=== PATIENT | male | born 1985 | race Caucasian/White ===

== ENCOUNTER 2020-02-23 11:34 | Inpatient (IN) | payer OTHER ==
[~2020-02-23] VITALS: Ht 198.1 cm; Wt 202.6 kg
--- NOTE | 2020-02-23 11:45 | NUR ---
BOWLING BALL MARKER: [id number]
--- NOTE | 2020-02-23 11:53 | NUR ---
NEONATAL SPECIALIST: [id number]
[2020-02-23] MEDS ORDERED: OXYcodone/APAP 5/325MG TABLET PO ONE (13:30)
[2020-02-23] MEDS ORDERED: OXYcodone/APAP 5/325MG TABLET ONE (13:31)
[2020-02-23] MEDS ORDERED: ONDANSETRON ODT 4 MG PO PRN (14:30)
[2020-02-23] MEDS ORDERED: ONDANSETRON 2MG/ML, 2ML IVPush PRN (14:30)
[2020-02-23] MEDS ORDERED: OXYcodone/APAP 5/325MG TABLET PO PRN (14:30)
[2020-02-23] MEDS ORDERED: POLYETHYLENE GLYCOL 17 GM PACKET PO PRN (14:30)
[2020-02-23] MEDS ORDERED: TRAZODONE 100MG TABLET PO PRN (14:30)
[2020-02-23] MEDS ORDERED: LORazepam 2 MG/ML, 1ML IVPush PRN (14:30)
[2020-02-23] MEDS ORDERED: MELATONIN 5 MG TABLET PO PRN (14:30)
[2020-02-23] MEDS ORDERED: MORPHINE SULFATE 4 MG/ML, 1ML IVPush PRN (14:30)
[2020-02-23] MEDS ORDERED: VANCOMYCIN PER PHARMACY MC PRN (15:00)
[2020-02-23 15:42] LABS: ANION GAP 5 mmol/L (5-15); CALCIUM 9.6 mg/dL (8.5-10.1); CHLORIDE 102 mmol/L (98-107); CREATININE 0.91 mg/dL (0.7-1.3)
[2020-02-23 15:48] VITALS: BP 127/73
[2020-02-23] MEDS ORDERED: PHARMACOKINETIC MONITORING MC PRN (16:00)
[2020-02-23] MEDS: INSULIN LISPRO 100 UNITS/ML, PEN SQ-INSULIN SCH ×2 (16:00→19:56)
[2020-02-23] MEDS ORDERED: GADOTERATE 7.5 MMOL/15 ML VIAL ONE (16:43)
[2020-02-23] MEDS: PIPERACILLIN/TAZO/PMX 4.5GM 100 ML IV SCH ×2 (17:44→22:20)
[2020-02-23] MEDS: ENOXAPARIN 30 MG/0.3 ML SQ SCH (18:24)
[2020-02-23] MEDS: VANCOMYCIN 2,500 MG in SODIUM CHLORIDE 0.9% 500 ML IV SCH (18:25)
[2020-02-23 20:08] VITALS: BP 123/76
[2020-02-24] MEDS: VANCOMYCIN 2,500 MG in SODIUM CHLORIDE 0.9% 500 ML IV SCH ×3 (01:12→20:01)
[2020-02-24 01:19] VITALS: BP 125/79
[2020-02-24] MEDS: PIPERACILLIN/TAZO/PMX 4.5GM 100 ML IV SCH ×4 (04:07→21:56)
[2020-02-24] MEDS: ENOXAPARIN 30 MG/0.3 ML SQ SCH ×5 (04:07→20:52)
[2020-02-24 06:29] LABS: BASOPHILS % (AUTO) 1 % (0-1); EOSINOPHILS % (AUTO) 6 % (1-7); LYMPHOCYTES % (AUTO) 25 % (22-44); MEAN CORPUSCULAR HEMOGLOBIN 29.2 pg (27.5-34.5); MEAN CORPUSCULAR HGB CONC 33.9 g/dL (33.2-36.2); MEAN PLATELET VOLUME 7.8 fL (7.4-10.4); MONOCYTES % (AUTO) 11 % (2-9); NEUTROPHILS % (AUTO) 57 % (42-75); PLATELET COUNT 311 x10^3/uL (130-400); RED BLOOD COUNT 4.51 x10^6/uL (4.38-5.82); RED CELL DISTRIBUTION WIDTH 12.8 % (9.4-14.8)
[2020-02-24 06:31] LABS: MD NO
[2020-02-24 06:41] LABS: ALBUMIN 2.9 g/dL (3.4-5.0); ANION GAP 8 mmol/L (5-15); CALCIUM 9.2 mg/dL (8.5-10.1); CHLORIDE 106 mmol/L (98-107)
[2020-02-24 06:44] LABS: ALANINE AMINOTRANSFERASE 32 U/L (12-78); ALKALINE PHOSPHATASE 104 U/L (45-117); BILIRUBIN,TOTAL 0.9 mg/dL (0.2-1.0); CREATININE 0.85 mg/dL (0.7-1.3); TOTAL PROTEIN 7.3 g/dL (6.4-8.2)
[2020-02-24 07:00] VITALS: BP 125/75
[2020-02-24] MEDS: INSULIN LISPRO 100 UNITS/ML, PEN SQ-INSULIN SCH ×4 (07:00→20:02)
[2020-02-24 14:03] VITALS: BP 126/86
[2020-02-24] MEDS ORDERED: MIDAZOLAM 1 MG/ML, 2ML ONE (17:41)
[2020-02-24] MEDS ORDERED: BUPIVACAINE/PF 0.5% ONE (17:42)
[2020-02-24] MEDS ORDERED: LIDOCAINE/PF 1%, 30ML ONE (17:42)
[2020-02-24] MEDS ORDERED: ROCURONIUM 10 MG/ML,10ML ONE (17:53)
[2020-02-24] MEDS ORDERED: CEFAZOLIN 1,000 MG ONE (17:53)
[2020-02-24] MEDS ORDERED: SUGAMMADEX 200 MG/2 ML IVPush ONE (17:53)
[2020-02-24] MEDS ORDERED: PROPOFOL 10 MG/ML, 20ML ONE (17:53)
[2020-02-24] MEDS ORDERED: ONDANSETRON 2MG/ML, 2ML ONE (17:53)
[2020-02-24] MEDS ORDERED: FENTANYL PF 100 MCG/2ML ONE (18:11)
[2020-02-24] MEDS ORDERED: VANCOMYCIN 1,000 MG ONE (18:22)
[2020-02-24] MEDS ORDERED: hydrALAzine 20 MG/ML, 1ML IV PRN (18:30)
[2020-02-24] MEDS ORDERED: PROMETHAZINE 25 MG/ML, 1ML IV PRN (18:30)
[2020-02-24] MEDS ORDERED: HYDROmorphone 1 MG/ML, 1ML INJ IV PRN (18:30)
[2020-02-24] MEDS ORDERED: DIAZEPAM 5 MG/ML, 2ML IV PRN ×2 (18:30)
[2020-02-24] MEDS ORDERED: ALBUTEROL SULFATE 2.5 MG/3 ML NPPB PRN (18:30)
[2020-02-24] MEDS ORDERED: ONDANSETRON 2MG/ML, 2ML IVPush PRN (18:30)
[2020-02-24] MEDS ORDERED: OXYcodone 5 MG/5 ML ORAL.SOL UDC PO PRN (18:30)
[2020-02-24] MEDS ORDERED: METOCLOPRAMIDE 5 MG/ML, 2ML IV PRN (18:30)
[2020-02-24] MEDS ORDERED: KETOROLAC 30 MG/1 ML IV PRN (18:30)
[2020-02-24] MEDS ORDERED: LABETALOL 5MG/ML, 20ML IV PRN (18:30)
[2020-02-24] MEDS ORDERED: MEPERIDINE/PF 25MG/0.5ML IVPush PRN (18:30)
[2020-02-24] MEDS ORDERED: FENTANYL PF 100 MCG/2ML IV PRN (18:30)
[2020-02-24] MEDS ORDERED: HYDROmorphone 1 MG/ML, 1ML INJ ONE (18:51)
[2020-02-24] MEDS ORDERED: OXYcodone 5 MG/5 ML ORAL.SOL UDC ONE (18:51)
[2020-02-24 19:48] VITALS: BP 127/79
[2020-02-25 01:05] VITALS: BP 119/80
[2020-02-25] MEDS: PIPERACILLIN/TAZO/PMX 4.5GM 100 ML IV SCH ×4 (03:31→21:07)
[2020-02-25] MEDS: VANCOMYCIN 2,500 MG in SODIUM CHLORIDE 0.9% 500 ML IV SCH (04:14)
[2020-02-25] MEDS: INSULIN LISPRO 100 UNITS/ML, PEN SQ-INSULIN SCH ×4 (07:00→20:14)
[2020-02-25 08:09] VITALS: BP 130/84
[2020-02-25 08:52] LABS: CREATININE 0.91 mg/dL (0.7-1.3); VANCOMYCIN,TROUGH 33.5 mcg/mL (5.0-10.0)
[2020-02-25 12:41] VITALS: BP 138/84
[2020-02-25] MEDS ORDERED: VANCOMYCIN 2,300 MG in SODIUM CHLORIDE 0.9% 500 ML IV SCH (14:30)
[2020-02-25 19:27] VITALS: BP 150/90
[2020-02-26 01:03] VITALS: BP 127/76
[2020-02-26] MEDS: PIPERACILLIN/TAZO/PMX 4.5GM 100 ML IV SCH ×4 (04:08→21:53)
[2020-02-26] MEDS: ENOXAPARIN 30 MG/0.3 ML SQ SCH ×2 (04:08→16:29)
[2020-02-26] MEDS: INSULIN LISPRO 100 UNITS/ML, PEN SQ-INSULIN SCH ×2 (07:00→11:00)
[2020-02-26 08:19] VITALS: BP 134/82
[2020-02-26 13:05] VITALS: BP 124/78
[2020-02-26 19:44] VITALS: BP 141/77
[2020-02-27 00:58] VITALS: BP 129/83
[2020-02-27] MEDS: PIPERACILLIN/TAZO/PMX 4.5GM 100 ML IV SCH ×4 (04:07→22:09)
[2020-02-27] MEDS: ENOXAPARIN 30 MG/0.3 ML SQ SCH ×2 (04:07→16:47)
[2020-02-27 07:57] VITALS: BP 130/81
[2020-02-27 14:36] VITALS: BP 146/92
[2020-02-27 19:56] VITALS: BP 126/85
[2020-02-28 01:01] VITALS: BP 144/92
[2020-02-28] MEDS: PIPERACILLIN/TAZO/PMX 4.5GM 100 ML IV SCH ×4 (04:15→22:22)
[2020-02-28] MEDS: ENOXAPARIN 30 MG/0.3 ML SQ SCH ×2 (04:15→16:21)
[2020-02-28 07:02] VITALS: BP 121/75
[2020-02-28 12:25] VITALS: BP 116/77
[2020-02-28 20:54] VITALS: BP 131/76
[2020-02-29 00:32] VITALS: BP 107/69
[2020-02-29] MEDS: PIPERACILLIN/TAZO/PMX 4.5GM 100 ML IV SCH ×2 (04:46→10:22)
[2020-02-29] MEDS: ENOXAPARIN 30 MG/0.3 ML SQ SCH ×2 (04:46→16:12)
[2020-02-29 06:34] LABS: ANION GAP 6 mmol/L (5-15); CHLORIDE 107 mmol/L (98-107)
[2020-02-29 06:44] LABS: ALANINE AMINOTRANSFERASE 34 U/L (12-78); ALKALINE PHOSPHATASE 84 U/L (45-117); BILIRUBIN,TOTAL 0.5 mg/dL (0.2-1.0); CREATININE 0.96 mg/dL (0.7-1.3); TOTAL PROTEIN 7.3 g/dL (6.4-8.2)
[2020-02-29 06:53] LABS: HCT (SEDRATE) 39.1 % (39.2-51.8)
[2020-02-29 06:56] LABS: BASOPHILS % (AUTO) 1 % (0-1); EOSINOPHILS % (AUTO) 4 % (1-7); LYMPHOCYTES % (AUTO) 30 % (22-44); MEAN CORPUSCULAR HEMOGLOBIN 29.6 pg (27.5-34.5); MEAN CORPUSCULAR HGB CONC 34.3 g/dL (33.2-36.2); MEAN PLATELET VOLUME 7.3 fL (7.4-10.4); MONOCYTES % (AUTO) 6 % (2-9); NEUTROPHILS % (AUTO) 60 % (42-75); PLATELET COUNT 392 x10^3/uL (130-400); RED BLOOD COUNT 4.53 x10^6/uL (4.38-5.82); RED CELL DISTRIBUTION WIDTH 12.6 % (9.4-14.8)
[2020-02-29 07:01] LABS: MD NO
[2020-02-29 07:12] VITALS: BP 120/77
[2020-02-29] MEDS: metroNIDAZOLE 500 MG TABLET PO SCH ×2 (11:42→19:33)
[2020-02-29] MEDS: CEFTRIAXONE PMX 2GM/50ML 50 ML IVPB SCH (11:42)
[2020-02-29 12:41] VITALS: BP 123/68
[2020-02-29 19:41] VITALS: BP 128/77
[2020-03-01 01:33] VITALS: BP 123/79
[2020-03-01] MEDS: ENOXAPARIN 30 MG/0.3 ML SQ SCH ×2 (03:53→15:36)
[2020-03-01] MEDS: metroNIDAZOLE 500 MG TABLET PO SCH ×3 (03:53→20:21)
[2020-03-01 07:34] VITALS: BP 111/73
[2020-03-01] MEDS: CEFTRIAXONE PMX 2GM/50ML 50 ML IVPB SCH (11:46)
[2020-03-01 12:18] VITALS: BP 119/75
[2020-03-01 20:00] VITALS: BP 138/85
[2020-03-02 02:13] VITALS: BP 137/81
[2020-03-02] MEDS: metroNIDAZOLE 500 MG TABLET PO SCH ×3 (04:01→20:17)
[2020-03-02] MEDS: ENOXAPARIN 30 MG/0.3 ML SQ SCH ×2 (04:01→16:12)
[2020-03-02 09:04] VITALS: BP 110/72
[2020-03-02] MEDS: CEFTRIAXONE PMX 2GM/50ML 50 ML IVPB SCH (11:18)
[2020-03-02 15:59] VITALS: BP 114/77
[2020-03-02 20:18] VITALS: BP 137/84
[2020-03-03 00:25] VITALS: BP 112/72
[2020-03-03] MEDS: metroNIDAZOLE 500 MG TABLET PO SCH ×3 (04:13→19:35)
[2020-03-03] MEDS: ENOXAPARIN 30 MG/0.3 ML SQ SCH ×2 (04:13→16:39)
[2020-03-03 07:31] VITALS: BP 113/80
[2020-03-03] MEDS: CEFTRIAXONE PMX 2GM/50ML 50 ML IVPB SCH (11:09)
[2020-03-03 14:18] VITALS: BP 134/82
[2020-03-03 20:20] VITALS: BP 118/74
[2020-03-04 02:20] VITALS: BP 132/87
[2020-03-04] MEDS: metroNIDAZOLE 500 MG TABLET PO SCH ×3 (03:54→19:29)
[2020-03-04] MEDS: ENOXAPARIN 30 MG/0.3 ML SQ SCH ×2 (03:54→16:00)
[2020-03-04 04:41] LABS: CREATININE 1.03 mg/dL (0.7-1.3)
[2020-03-04 07:25] VITALS: BP 120/80
[2020-03-04 07:57] VITALS: BP 126/81
[2020-03-04] MEDS: CEFTRIAXONE PMX 2GM/50ML 50 ML IVPB SCH (11:31)
[2020-03-04 15:06] VITALS: BP 128/70
[2020-03-04 19:29] VITALS: BP 132/91
[2020-03-05] MEDS: ENOXAPARIN 30 MG/0.3 ML SQ SCH ×2 (03:41→15:05)
[2020-03-05] MEDS: metroNIDAZOLE 500 MG TABLET PO SCH ×3 (03:41→20:04)
[2020-03-05 03:42] VITALS: BP 131/86
[2020-03-05 07:36] VITALS: BP 118/75
[2020-03-05] MEDS ORDERED: CEFTRIAXONE PMX 2GM/50ML 50 ML IVPB SCH (10:00)
[2020-03-05 13:16] VITALS: BP 137/85
[2020-03-05 20:10] VITALS: BP 114/77
[2020-03-06 03:05] VITALS: BP 133/83
[2020-03-06] MEDS: metroNIDAZOLE 500 MG TABLET PO SCH ×3 (03:05→19:43)
[2020-03-06] MEDS: ENOXAPARIN 30 MG/0.3 ML SQ SCH ×2 (04:00→16:00)
[2020-03-06 09:06] VITALS: BP 114/76
[2020-03-06 15:35] VITALS: BP 138/84
[2020-03-06 20:26] VITALS: BP 121/80
[2020-03-07 01:12] VITALS: BP 117/79
[2020-03-07] MEDS: ENOXAPARIN 30 MG/0.3 ML SQ SCH ×2 (03:51→15:21)
[2020-03-07] MEDS: metroNIDAZOLE 500 MG TABLET PO SCH ×3 (04:04→19:23)
[2020-03-07 04:29] LABS: BASOPHILS % (AUTO) 1 % (0-1); EOSINOPHILS % (AUTO) 2 % (1-7); LYMPHOCYTES % (AUTO) 34 % (22-44); MEAN CORPUSCULAR HEMOGLOBIN 29.4 pg (27.5-34.5); MEAN PLATELET VOLUME 8.1 fL (7.4-10.4); MONOCYTES % (AUTO) 8 % (2-9); NEUTROPHILS % (AUTO) 56 % (42-75); PLATELET COUNT 332 x10^3/uL (130-400); RED BLOOD COUNT 4.89 x10^6/uL (4.38-5.82); RED CELL DISTRIBUTION WIDTH 13.4 % (9.4-14.8)
[2020-03-07 04:32] LABS: MD NO
[2020-03-07 04:37] LABS: ALANINE AMINOTRANSFERASE 56 U/L (12-78); ALBUMIN 3.4 g/dL (3.4-5.0); ANION GAP 4 mmol/L (5-15); C-REACTIVE PROTEIN, QUANT 0.79 mg/dL (0.02-0.49); CALCIUM 8.9 mg/dL (8.5-10.1); CHLORIDE 107 mmol/L (98-107)
[2020-03-07 04:40] LABS: ALKALINE PHOSPHATASE 75 U/L (45-117); BILIRUBIN,TOTAL 0.9 mg/dL (0.2-1.0); TOTAL PROTEIN 7.6 g/dL (6.4-8.2)
[2020-03-07 06:38] VITALS: BP 130/86
[2020-03-07] MEDS: CEFTRIAXONE PMX 2GM/50ML 50 ML IVPB SCH (07:09)
[2020-03-07] MEDS ORDERED: CEFTRIAXONE PMX 2GM/50ML 50 ML IVPB SCH (11:00)
[2020-03-07 14:57] VITALS: BP 123/73
[2020-03-07] MEDS ORDERED: METR500T PO ×2 (15:52)
[2020-03-07 19:11] VITALS: BP 124/82
[2020-03-08 00:33] VITALS: BP 126/85
[2020-03-08] MEDS: metroNIDAZOLE 500 MG TABLET PO SCH ×3 (03:13→19:48)
[2020-03-08] MEDS: ENOXAPARIN 30 MG/0.3 ML SQ SCH ×2 (03:15→15:10)
[2020-03-08] MEDS: CEFTRIAXONE PMX 2GM/50ML 50 ML IVPB SCH (07:08)
[2020-03-08 07:28] VITALS: BP 111/75
[2020-03-08 12:17] VITALS: BP 126/79
[2020-03-08 19:49] VITALS: BP 116/78
[2020-03-09 01:30] VITALS: BP 125/80
[2020-03-09] MEDS: metroNIDAZOLE 500 MG TABLET PO SCH ×3 (02:56→20:32)
[2020-03-09] MEDS: ENOXAPARIN 30 MG/0.3 ML SQ SCH ×3 (02:57→20:32)
[2020-03-09] MEDS: CEFTRIAXONE PMX 2GM/50ML 50 ML IVPB SCH (07:21)
[2020-03-09 07:23] VITALS: BP 120/71
[2020-03-09 12:24] VITALS: BP 114/71
[2020-03-09 20:33] VITALS: BP 130/82
[2020-03-10 00:51] VITALS: BP 113/72
[2020-03-10] MEDS: metroNIDAZOLE 500 MG TABLET PO SCH ×2 (03:57→12:06)
[2020-03-10 04:33] LABS: CREATININE 0.91 mg/dL (0.7-1.3)
[2020-03-10 07:00] VITALS: BP 120/75
[2020-03-10] MEDS: CEFTRIAXONE PMX 2GM/50ML 50 ML IVPB SCH (07:57)
[2020-03-10] MEDS ORDERED: CEFT2VIA53 IV (10:52)
[2020-03-10] MEDS ORDERED: METR500T PO (10:52)
[2020-03-10 12:15] VITALS: BP 131/78
== END 2020-03-10 13:25 | disposition home or self-care (01) | DRG 617 ==
LOC: ED 12:44 → EDIP 13:23 → SUATTDRO 14:05 → 4EST 15:39 → 3N 03-03 18:32 → DCLOUNGE 03-10 13:05
PROVIDERS: ADMIT Family Medicine; ATTEND Hospitalist
PROC: 0QBP0ZX Excision of Left Metatarsal, Open Approach, Diagnostic (ICD-10-PCS; 2020-02-24)
PROC: 0Y6N0Z9 Detachment at Left Foot, Partial 1st Ray, Open Approach (ICD-10-PCS; principal; 2020-02-24 16:00)
PROC: 02HV33Z Insertion of Infusion Device into Superior Vena Cava, Percutaneous Approach (ICD-10-PCS; 2020-02-27)
PROC: B548ZZA Ultrasonography of Superior Vena Cava, Guidance (ICD-10-PCS; 2020-02-27)
DX: E11.69 Type 2 diabetes mellitus with other specified complication (principal); M00.9 Pyogenic arthritis, unspecified; Z68.43 Body mass index [BMI] 50.0-59.9, adult; L03.116 Cellulitis of left lower limb; M86.8X7 Other osteomyelitis, ankle and foot; B95.1 Streptococcus, group B, as the cause of diseases classified elsewhere; E11.621 Type 2 diabetes mellitus with foot ulcer; E11.622 Type 2 diabetes mellitus with other skin ulcer; E11.628 Type 2 diabetes mellitus with other skin complications; E11.65 Type 2 diabetes mellitus with hyperglycemia; E66.01 Morbid (severe) obesity due to excess calories; F17.210 Nicotine dependence, cigarettes, uncomplicated; I10 Essential (primary) hypertension; L97.529 Non-pressure chronic ulcer of other part of left foot with unspecified severity; Z86.16 Personal history of COVID-19; Z91.013 Allergy to seafood; Z20.822 Contact with and (suspected) exposure to COVID-19
CPT/HCPCS: 36415; 73630; 99285; J3490; S0020; 36573; 71045; 80048; 80053; 80202; 82565; 82607; 82962; 83036; 85025; 85651; 86140; 87040; 87070; 87075; 87077; 87147; 87205; 87635; 88307; 88311; G0378; J0690; J0696; J1650; J2250; J2405; J2543; J2704; J3010; J3370; A9575; C1751; J7040